=== PATIENT | female | born 1945 | race Caucasian/White ===

== ENCOUNTER 2019-02-22 07:01 | Emergency (ER) | payer MEDICARE, OTHER ==
--- NOTE | 2019-02-22 07:27 | ED ---
Neurological HPI - HPI Summary HPI Summary: A 73 y/o F presents to ED c/o uncontrolled shaking onset this AM while sleeping. Per , he was awake getting ready for work, when he noticed patient was half-asleep in bed and shaking uncontrollably. Associated sx: neck pain. She has arthritis in her neck. Denies abd pain. Her used a new arthritis pain relief cream ([employer]) on patient last night. PMHx: HTN , early dementia. Denies DM. Medications discussed. Her PCP is Dr. Cruz. She' s seen Dr. Gutiérrez, neurosurg, previously for her neck arthritis. - History of Current Complaint Chief Complaint: EDGeneral Stated Complaint: UNCONTROLLED SHAKING PER PT HUS Time Seen by Provider: 02/22/19 07:19 Hx Obtained From: Patient, Family/Environmental Engineering Manager - Onset/Duration: Sudden Onset, Still Present - mildly Timing: Constant Pain Intensity: 8 Pain Scale Used: 0-10 Numeric Associated Signs and Symptoms: Positive: Neck Pain/Stiffness - Allergy/Home Medications Allergies/Adverse Reactions: Allergies Allergy/AdvReac Type Severity Reaction Status Date / Time No Known Allergies Allergy Verified 02/22/19 07:06 Home Medications: Home Medications Aspirin 81 mg CHEW TAB* [Aspirin Low Dose TAB*] 81 mg PO DAILY 02/22/19 [ History Confirmed 02/22/19] Magnesium Oxide [Magnesium] 250 mg PO DAILY 02/22/19 [History Confirmed 02/22/19 ] PMH/Surg Hx/FS Hx/Imm Hx Previously Healthy: No Endocrine/Hematology History: Denies: Hx Diabetes Cardiovascular History: Reports: Hx Hypertension - controlled Denies: Hx Pacemaker/ICD Respiratory History: Denies: Hx Asthma GI History: Reports: Hx Diverticulosis Musculoskeletal History: Reports: Hx Arthritis - Neck Denies: Hx Rheumatoid Arthritis, Hx Osteoporosis Sensory History: Reports: Hx Cataracts - cataract surgery performed, Hx Hearing Aid - will not wear Opthamlomology History: Reports: Hx Cataracts - cataract surgery performed Neurological History: Reports: Hx Dementia - early Denies: Other Neuro Impairments/Disorders Psychiatric History: Denies: Hx Panic Disorder - Cancer History Hx Chemotherapy: No Hx Radiation Therapy: No - Surgical History Surgery Procedure, Year, and Place: shoulder bone spur, hysterectomy, knee replaced, eye surgery Hx Anesthesia Reactions: Yes - general=severe nausea Infectious Disease History: No Infectious Disease History: Denies: Traveled Outside the [place] in Last 30 Days - Family History Family History: Breast CA. Osteoporosis. - Social History Occupation: Retired Lives: With Family Alcohol Use: None Hx Substance Use: No Substance Use Type: Reports: None Hx Tobacco Use: No Smoking Status (MU): Never Smoked Tobacco Review of Systems Positive: Other - pos: "uncontrollable shaking" Negative: Abdominal Pain Musculoskeletal: Other - pos: neck pain All Other Systems Reviewed And Are Negative: Yes Physical Exam - Summary Physical Exam Summary: Appearance: The patient is well-nourished in no acute distress and in no acute pain. Skin: The skin is warm and dry and skin color reflects adequate perfusion. HEENT: The head is normocephalic and atraumatic. The pupils are equal and reactive. The conjunctivae are clear and without drainage. Nares are patent and without drainage. Mouth reveals moist mucous membranes and the throat is without erythema and exudate. The external ears are intact. The ear canals are patent and without drainage. The tympanic membranes are intact. Neck: the neck is supple with full range of motion and non-tender. There are no carotid bruits. There is no neck vein distension. Respiratory: Chest is non-tender. Lungs are clear to auscultation and breath sounds are symmetrical and equal. Cardiovascular: Heart is regular rate and rhythm. There is no murmur or rub auscultated. There is no peripheral edema and pulses are symmetrical and equal. Abdomen: The abdomen is soft and non-tender. There are normal bowel sounds heard in all four quadrants and there is no organomegaly palpated. Musculoskeletal: There is no back tenderness noted. Extremities are non-tender with full range of motion. There is good capillary refill. There is no peripheral edema or calf tenderness elicited. Neurological: Patient is alert and oriented to person, place and time. The patient has symmetrical motor strength in all four extremities. Cranial nerves are grossly intact. Deep tendon reflexes are symmetrical and equal in all four extremities, slightly hyper-reflexive. Psychiatric: The patient has an appropriate affect and does not exhibit any anxiety or depression. Triage Information Reviewed: Yes Vital Signs On Initial Exam: Initial Vitals Temp Pulse Resp BP Pulse Ox 97.7 F 88 16 201/113 98 02/22/19 07:02 02/22/19 07:02 02/22/19 07:02 02/22/19 07:02 02/22/19 07:02 Vital Signs Reviewed: Yes - Donovan Coma Scale Best Eye Response: 4 - Spontaneous Best Motor Response: 6 - Obeys Commands Best Verbal Response: 5 - Oriented Coma Scale Total: 15 Diagnostics - Vital Signs Vital Signs Temp Pulse Resp BP Pulse Ox 02/22/19 07:02 97.7 F 88 16 201/113 98 - Laboratory Result Diagrams: 02/22/19 07:46 02/22/19 07:46 Lab Statement: Any lab studies that have been ordered have been reviewed, and results considered in the medical decision making process. - CT BRAIN CT Interpretation Completed By: Radiologist Summary of CT Findings: IMPRESSION: Normal brain CT. ED provider has reviewed this report. - EKG 0749 Cardiac Rate: NL - 67 BPM EKG Rhythm: Sinus Rhythm ST Segment: Normal Ectopy: None Summary of EKG Findings: No STEMI. Re-Evaluation - Re-Evaluation 1 Re-Evaluation Time: 09:38 Change: Unchanged Comment: Discussing results thus far with patient. 2 Re-Evaluation Time: 10:01 Change: Improved Comment: Discussing results with patient and plans for discharge. Patient is agreeable to this. Course/Dx - Course Course Of Treatment: Ms. Kuo was observed by her to have upper extremity shaking while she was just waking up in the morning. She does not remember this. She still says she is groggy and feels shaky. She shakes her arms when she says this. She was nontoxic in appearance with stable vital signs. She was kept on the monitor with no unusual activity. Labs were obtained and were unremarkable as was a CT scan. I'm not sure what the etiology of this was and I did not witness it myself. It could've been a seizure. She has a lot of problems with her neck and it's possible she slept wrong and had some paresthesias. I recommended she follow up with her PCP for further workup. - Diagnoses Provider Diagnoses: Episode of shaking Discharge - Sign-Out/Discharge Documenting (check all that apply): Patient Departure - D/C Patient Received Moderate/Deep Sedation with Procedure: No - Discharge Plan Condition: Stable Disposition: HOME Patient Education Materials: Tremors (ED) Referrals: Bhavna Cruz MD [Primary Care Provider] - 3 Days Additional Instructions: Please return to the ED if you experience new or worsening symptoms. Follow up with your primary care provider in 2-3 days. - Billing Disposition and Condition Condition: STABLE Disposition: Home - Attestation Statements Document Initiated by Marielena: Yes Documenting Scribe: Christian Lua Provider For Whom Coryibkevin is Documenting (Include Credential): Dr. Jayden Gil MD Scribe Attestation: Christian Liu scribed for Dr. Jayden Gil MD on 02/22/19 at 1427. Scribe Documentation Reviewed: Yes Provider Attestation: The documentation as recorded by the Christian haines accurately reflects the service I personally performed and the decisions made by me, Dr. Jayden Gil MD Status of Scribe Document: Viewed
[2019-02-22 07:53] LABS: ABS Eosinophils 0.3 10^3/ul (0-0.6); ABS Lymphocytes 1.5 10^3/ul (1.0-4.8); ABS Monocytes 0.3 10^3/ul (0-0.8); ABS Neutrophils 2.7 10^3/ul (1.5-7.7); Eosinophil % 5.7 %; Hematocrit 42 % (35-47); Hemoglobin 14.7 g/dL (12.0-16.0); Lymphocyte % 30.7 %; Mean Corpuscular HGB Conc 35 g/dL (31-36); Mean Corpuscular Hemoglobin 32 pg (27-31); Mean Corpuscular Volume 92 fL (80-97); Platelet Count 136 10^3/uL (150-450); Red Cell Distribution Width 13 % (10-15); White Blood Count 4.8 10^3/uL (3.5-10.8)
[2019-02-22 08:04] LABS: Albumin 4.5 g/dL (3.2-5.2); Anion Gap 7 mmol/L (2-11); CO2 Carbon Dioxide 26 mmol/L (22-32); Calcium 9.7 mg/dL (8.6-10.3); Chloride 107 mmol/L (101-111); Magnesium 2.1 mg/dL (1.9-2.7); Potassium 4.1 mmol/L (3.5-5.0); Sodium 140 mmol/L (135-145)
[2019-02-22 08:10] LABS: ALT 48 U/L (7-52); AST 40 U/L (13-39); Albumin/Globulin Ratio 1.7 (1-3); Alkaline Phosphatase 68 U/L (34-104); BUN/Creatinine Ratio 23.2 (8-20); Blood Urea Nitrogen 23 mg/dL (6-24); C Reactive Protein < 1.00 mg/L (<8.01); EGFR African American 66.9 (>60); EGFR Non-African American 55.3 (>60); Globulin 2.7 g/dL (2-4); Glucose 139 mg/dL (70-100); Total Protein 7.2 g/dL (6.4-8.9)
[2019-02-22 09:32] LABS: Urine Appearance Clear; Urine Bacteria Absent (Absent); Urine Bilirubin Negative (Negative); Urine Blood Negative (Negative); Urine Color Straw; Urine Glucose Negative (Negative); Urine Ketones Negative (Negative); Urine Nitrite Negative (Negative); Urine Protein Negative (Negative); Urine Red Blood Cell Absent (Absent); Urine Specific Gravity 1.006 (1.010-1.030); Urine Squamous Epithelial Cell Present (Absent); Urine Urobilinogen Negative (Negative); Urine White Blood Cell Trace(0-5/hpf) (Absent)
[2019-02-22 09:51] LABS: TSH (Thyroid Stimulating Horm) 1.99 mcIU/mL (0.34-5.60)
[2019-02-22 10:12] VITALS: BP 144/73
== END 2019-02-22 10:12 | disposition home or self-care (01) ==
LOC: ED 07:01
DX: R25.1 Tremor, unspecified (principal); M54.2 Cervicalgia; I10 Essential (primary) hypertension; Z79.82 Long term (current) use of aspirin
CPT/HCPCS: 36415; 70450; 80053; 81003; 83605; 83735; 84443; 84484; 85025; 85610; 86140; 87086; 93005; 99283

== ENCOUNTER 2020-03-26 19:52 | Observation (INO) ==
[2020-03-26] MEDS ORDERED: Piperacillin/Tazobac ADVAN(*) 3.375 GM in NS 0.9% 100 ml BAG 100 ML IVPB ONE (20:48)
[2020-03-26] MEDS ORDERED: Iodixanol (CONTRAST) 320 MG/ML 100 ML SDV IV ONE (21:10)
[2020-03-26 21:13] LABS: Activated Partial Thrombo Time 25.1 seconds (26.0-38.0); INR 1.23 (0.82-1.09)
[2020-03-26 21:21] LABS: Albumin 3.6 g/dL (3.2-5.2); Albumin/Globulin Ratio 1.4 (1-3); Calcium 8.4 mg/dL (8.6-10.3); EGFR African American 77.4 (>60); Globulin 2.6 g/dL (2-4); Potassium 3.7 mmol/L (3.5-5.0); Total Bilirubin 0.6 mg/dL (0.2-1.0); Total Protein 6.2 g/dL (6.4-8.9)
[2020-03-26 21:23] LABS: Troponin I 0.01 ng/mL (<0.03)
[2020-03-26 21:29] LABS: ABS Lymphocytes 0.5 10^3/ul (1.0-4.8); ABS Monocytes 0.3 10^3/ul (0-0.8); Eosinophil % 1.2 %; Hematocrit 34 % (35-47); Hemoglobin 12.2 g/dL (12.0-16.0); Lymphocyte % 11.5 %; Mean Corpuscular HGB Conc 36 g/dL (31-36); Mean Corpuscular Hemoglobin 32 pg (27-31); Mean Corpuscular Volume 90 fL (80-97); Mean Platelet Volume 8.8 fL (7.4-10.4); Nucleated Red Blood Cells % 0.1; Platelet Count 99 10^3/uL (150-450); Red Blood Count 3.77 10^6 /uL (3.70-4.87); Red Cell Distribution Width 14 % (10-15)
[2020-03-26 22:42] LABS: Urine Appearance Cloudy; Urine Bilirubin Negative (Negative); Urine Blood Negative (Negative); Urine Color Straw; Urine Glucose Negative (Negative); Urine Ketones Negative (Negative); Urine Nitrite Negative (Negative); Urine Protein Negative (Negative); Urine Specific Gravity 1.019 (1.010-1.030); Urine Urobilinogen Negative (Negative)
[2020-03-26 23:23] LABS: C Reactive Protein 87.42 mg/L (<8.01)
[2020-03-26] MEDS ORDERED: Zosyn per Pharmacy NOTE FOLLOW UP SCH (23:45)
[2020-03-27] MEDS: NS 0.9% 1000 ml BAG 1,000 ML IV SCH ×3 (01:11→21:20)
[2020-03-27] MEDS: ZOSYN 3.375 GM Q8H per EXTENDED INFUSION IV SCH ×3 (01:59→17:50)
[2020-03-27 04:21] LABS: ABS Eosinophils 0.1 10^3/ul (0-0.6); ABS Lymphocytes 0.6 10^3/ul (1.0-4.8); ABS Monocytes 0.2 10^3/ul (0-0.8); Eosinophil % 2.4 %; Hematocrit 38 % (35-47); Hemoglobin 13.3 g/dL (12.0-16.0); Lymphocyte % 15.3 %; Mean Corpuscular HGB Conc 35 g/dL (31-36); Mean Corpuscular Hemoglobin 32 pg (27-31); Mean Corpuscular Volume 90 fL (80-97); Nucleated Red Blood Cells % 0.1; Platelet Count 108 10^3/uL (150-450); Red Cell Distribution Width 14 % (10-15); White Blood Count 4.1 10^3/uL (3.5-10.8)
[2020-03-27 04:38] LABS: BUN/Creatinine Ratio 17.8 (8-20); C Reactive Protein 99.04 mg/L (<8.01); Calcium 8.3 mg/dL (8.6-10.3); EGFR African American 65.2 (>60); EGFR Non-African American 53.9 (>60)
[2020-03-27] MEDS ORDERED: Enoxaparin 40 MG/0.4 ML SYR SUBCUT SCH (21:00)
[2020-03-28] MEDS: ZOSYN 3.375 GM Q8H per EXTENDED INFUSION IV SCH ×2 (02:00→08:38)
[2020-03-28] MEDS: NS 0.9% 1000 ml BAG 1,000 ML IV SCH (07:07)
[2020-03-28 08:01] VITALS: BP 139/73
== END 2020-03-28 12:30 | disposition home or self-care (01) ==
LOC: SSU 19:52 → ED 19:52 → SSU 03-27 00:34
PROVIDERS: ADMIT Hospitalist; ATTEND Internal Medicine